=== PATIENT | female | born 1995 | race Caucasian/White ===

== ENCOUNTER 2017-06-18 13:51 | Emergency (ER) | payer OTHER ==
[~2017-06-18] VITALS: Ht 170.2 cm; Wt 65.9 kg
[2017-06-18 13:53] VITALS: BP 167/97; PULSE 89; TEMP 98.6
[2017-06-18 14:15] LABS: COLLECTION METHOD CLEAN CATCH
[2017-06-18 14:27] LABS: PH 7 (5-8); SQUAMOUS EPITHELIAL 0-2 /hpf; URINE APPEARANCE Clear; URINE BACTERIA Rare /hpf; URINE BILIRUBIN Negative (NEGATIVE); URINE BLOOD Negative (NEGATIVE); URINE COLOR Colorless; URINE GLUCOSE Negative (NEGATIVE); URINE KETONE Negative (NEGATIVE); URINE LEUKOCYTE ESTERASE Negative (NEGATIVE); URINE NITRATE Negative (NEGATIVE); URINE PROTEIN(semi-quant) Negative (NEGATIVE); URINE RBC None Seen /hpf; URINE UROBILINOGEN Negative (NEGATIVE)
== END 2017-06-18 16:01 | disposition home or self-care (01) ==
LOC: COL.ER 13:51
PROVIDERS: Nurse Practitioner
DX: L50.9 Urticaria, unspecified (principal); T37.8X5A Adverse effect of other specified systemic anti-infectives and antiparasitics, initial encounter; Z87.440 Personal history of urinary (tract) infections
CPT/HCPCS: J1100